=== PATIENT | female | born 1990 | race African-American/Black ===

== ENCOUNTER 2016-11-07 17:17 | Emergency (ER) | payer MEDICAID ==
[~2016-11-07] VITALS: Ht 165.1 cm; Wt 80.0 kg
[2016-11-07 17:18] VITALS: BP 141/72; PULSE 78; RESP 16; TEMP 98.9; O2SAT 99
--- NOTE | 2016-11-07 17:49 | PD ---
HPI Chief Complaint: Complaint Time Seen by Provider: 17:46 Travel History International Travel<30 days: No Contact w/Intl Traveler<30days: No Traveled to known affect area: No History of Present Illness HPI 26-year-old female since emergency department for evaluation of constant nonradiating right low back pain and dysuria 2 days. She denies fever, chills , nausea, vomiting. She reports similar symptoms in the past with a kidney infection. Symptoms severity mild. No aggravating or alleviating factors. PFSH Past Medical History Medical History: Denies Significant Hx ?: Not LMP: 10/16/16 Social History Alcohol Use: Yes Tobacco Use: No Substance Use: No Allergies-Medications (Allergen,Severity, Reaction): Coded Allergies: No Known Allergies (Unverified , 11/07/16) Reported Meds & Prescriptions Reported Meds & Active Scripts Active No Active Prescriptions or Reported Medications Review of Systems Except as stated in HPI: all other systems reviewed are Neg General / Constitutional: No: Fever Eyes: No: Visual changes HENT: No: Headaches Cardiovascular: No: Chest Pain or Discomfort Gastrointestinal: No: Abdominal Pain Physical Exam Narrative GENERAL: Alert, well-appearing female no acute distress. Resting comfortable the on stretcher. SKIN: Focused skin assessment warm/dry. HEAD: Atraumatic. Normocephalic. EYES: Pupils equal and round. No scleral icterus. No injection or drainage. ENT: No nasal bleeding or discharge. Mucous membranes pink and moist. NECK: Trachea midline. No JVD. CARDIOVASCULAR: Regular rate and rhythm. No murmur appreciated. RESPIRATORY: No accessory muscle use. Clear to auscultation. Breath sounds equal bilaterally. GASTROINTESTINAL: Abdomen soft, non-tender, nondistended. Hepatic and splenic margins not palpable. No CVA tenderness MUSCULOSKELETAL: No obvious deformities. No clubbing. No cyanosis. No edema. NEUROLOGICAL: Awake and alert. No obvious cranial nerve deficits. Motor grossly within normal limits. Normal speech. PSYCHIATRIC: Appropriate mood and affect; insight and judgment normal. Data Data Last Documented VS Vital Signs Date Time Temp Pulse Resp B/P Pulse Ox O2 Delivery O2 Flow Rate FiO2 11/07/16 17:18 98.9 78 16 141/72 99 Orders Urinalysis - C+S If Indicated (11/07/16 18:13) Urine Culture (7/29/17 18:25) Labs Laboratory Tests Test 11/07/16 18:25 Urine Color YELLOW Urine Turbidity HAZY Urine pH 5.5 Urine Specific [place] 1.026 Urine Protein TRACE mg/dL Urine Glucose (UA) NEG mg/dL Urine Ketones NEG mg/dL Urine Occult Blood TRACE Urine Nitrite NEG Urine Bilirubin NEG Urine Urobilinogen LESS THAN 2.0 MG/DL Urine Leukocyte Esterase LARGE Urine RBC 94 /hpf Urine WBC 126 /hpf Urine Squamous Epithelial 8 /hpf Cells Urine Bacteria OCC /hpf Urine Mucus FEW /lpf Microscopic Urinalysis Comment CULTURE INDICATED MDM Medical Decision Making Medical Screen Exam Complete: Yes Emergency Medical Condition: Yes Differential Diagnosis UTI, pyelonephritis, nephrolithiasis Narrative Course 26-year-old female with 2 day history of right low back pain and dysuria. Patient denies fever or chills. She reports similar symptoms with previous kidney infection. LMP 10/16/16. Denies possibly . Patient's physical exam is reassuring. She has no CVA tenderness. No abdominal pain. UA is positive for large amount of leukocytes, WBCs 126. Patient will be treated for pyelonephritis. Return precautions discussed. Patient verbalizes understanding and agrees to plan. Diagnosis Primary Impression: Pyelonephritis Referrals: Primary Care Physician Additional Instructions: Take the antibiotics as prescribed. Stay well hydrated by drinking plenty of fluids. Return to the emergency department if he developed new or worsening symptoms. Scripts Sulfamethoxazole-Trimethoprim (Bactrim DS)800-160 Mg Tab1 Tab PO BID #14 TAB Prov:Anitha Cooney 11/07/16 Disposition: 01 DISCHARGE HOME Condition: Stable Anitha Cooney Nov 07, 2016 17:49
[2016-11-07 19:35] LABS: BACTERIA, URINE OCC /hpf; BLOOD, URINE TRACE (NEG); COMMENT (UR) CULTURE INDICATED; CULTURE IF INDICATED CULTURE INDICATED; GLUCOSE,URINE NEG (NEG); KETONE, URINE NEG (NEG); MUCUS URINE FEW /lpf (OCC); NITRITE,URINE NEG (NEG); PH, URINE 5.5 (5.0-8.5); SQUAMOUS EPITHELIAL CELL URINE 8 /hpf (0-5); URINE COLOR YELLOW (YELLW/STRAW)
[2016-11-07] MEDS ORDERED: BACT800T5 PO (19:42)
== END 2016-11-07 19:54 | disposition home or self-care (01) ==
LOC: NEPD 17:17
DX: N12 Tubulo-interstitial nephritis, not specified as acute or chronic (principal)
CPT/HCPCS: 81001; 87086; 99283

== ENCOUNTER 2017-02-25 18:18 | Emergency (ER) | payer MEDICAID ==
[~2017-02-25] VITALS: Ht 162.6 cm; Wt 85.0 kg
[~2017-02-25 18:18] MED LIST: BACT800T5 PO
[2017-02-25 18:39] VITALS: BP 135/81; PULSE 81; RESP 16; TEMP 98.9; O2SAT 83
[2017-02-25] MEDS ORDERED: PREN29TA PO (18:48)
[2017-02-25] MEDS ORDERED: ACETAMINOPHEN 500 MG CPLT PO ONE (19:15)
--- NOTE | 2017-02-25 19:24 | PD ---
HPI Chief Complaint: Headache Time Seen by Provider: 19:11 Travel History International Travel<30 days: No Contact w/Intl Traveler<30days: No Traveled to known affect area: No History of Present Illness HPI 26 year-old female presents to the emergency department for complaint of headache. Patient rates her headache pain 7/10 in intensity right sided radiates to the right neck. Patient states she's had this headache for 3 days. Patient reports that her headache worsens or work improved some at home. Patient has not contacted her primary care provider/RETAIL ACCOUNT SPECIALIST regarding this headache. Headache is not sudden onset thunderclap or worst ever. Patient has taken no medications for her headache not even acetaminophen. Patient states she is 15 weeks . Patient is taking vitamins. Patient is 3 para 1 AB 1. Patient states she is 15 weeks and has had no issues with her . Patient states that she did have one episode of vomiting 3 days ago. Patient states that she has not had any change in mentation visual disturbance change in her speech or lower extremity numbness tingling or weakness or ataxia of gait. Patient states that she's had no fever or respiratory illness symptoms. Patient has had no injury or fall. 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 Patient states headache seems to improve and then returns as soon as she returns to work in that she has been doing a lot of studying she is also in school. She states when she does repetitive neck flexion that seems to worsen her headache. Patient has not used any ice pack were moist heat to the posterior neck either. Patient states he one month ago she had the same type of headache and take acetaminophen are provided no relief so she decided not to take any acetaminophen this time. Patient denies any chronic medical conditions in all of her immunizations are current. Patient does not voice any complaints of any chest pain or shortness of breath, no abdominal pain, no flank pain, no dysuria , no urgency, no hematuria, no vaginal discharge or vaginal bleeding, or change in bowel habits. PFSH Past Medical History Narrative Medical Ab1; no tobacco use: Nursing notes reviewed Medical History: Denies Significant Hx Immunizations Current: Yes Tetanus Vaccination: Unknown Influenza Vaccination: No ?: LMP: 15 WEEKS : 3 Para: 1 Miscarriage: 1 Past Surgical History Surgical History: No Previous Surgery Social History Alcohol Use: No Tobacco Use: No Substance Use: No Allergies-Medications (Allergen,Severity, Reaction): Coded Allergies: No Known Allergies (Unverified Adverse Reaction, Unknown, 02/25/17) Reported Meds & Prescriptions Reported Meds & Active Scripts Active Reported Plus Iron 29-1 mg ( Vit-Iron Carbonyl) 29 Mg Iron-1 Mg Tab 1 Tab PO DAILY Review of Systems Except as stated in HPI: all other systems reviewed are Neg General / Constitutional: No: Fever, Chills HENT: Positive: Headaches, No: Congestion, Neck Stiffness Cardiovascular: No: Chest Pain or Discomfort Respiratory: No: Cough, Shortness of Breath Gastrointestinal: Positive: Vomiting (x1), No: Nausea, Diarrhea, Abdominal Pain Genitourinary: Positive: Frequency, No: Urgency, Dysuria, Pelvic Pain, Flank Pain, Discharge, Vaginal Bleeding Musculoskeletal: No: Myalgias, Arthralgias Skin: No Rash Neurologic: Positive: Headache, No: Weakness, Syncope, Focal Abnormalities, Coordination Problem, Change in Mentation, Slurred Speech, Paresthesia, Incontinence Psychiatric: No: Anxiety Hematologic/Lymphatic: No: Lymph Node Enlargement Physical Exam Narrative GENERAL: Well-developed well-nourished female in no acute distress no respiratory distress sitting fairly on exam stretcher room air O2 saturation 98 % respirations nonlabored GCS SKIN: Warm and dry. HEAD: Atraumatic. Normocephalic. EYES: Pupils equal and round. No scleral icterus. No injection or drainage. Extraocular muscles intact. Funduscopic exam no papilledema. ENT: No nasal bleeding or discharge. Mucous membranes pink and moist. Airway is patent. Tympanic membranes no redness no dullness or loss of landmarks. NECK: Trachea midline. No JVD. Supple no meningismus no neck rigidity no midline tenderness to direct palpation along the cervical spine mild right paracervical trapezius muscle tenderness to palpation. Patient CARDIOVASCULAR: Regular rate and rhythm. RESPIRATORY: No accessory muscle use. Clear to auscultation. Breath sounds equal bilaterally. GASTROINTESTINAL: Abdomen soft, non-tender, nondistended. Hepatic and splenic margins not palpable. FHT: 164 MUSCULOSKELETAL: Extremities without clubbing, cyanosis, or edema. No obvious deformities. NEUROLOGICAL: Awake and alert. No obvious cranial nerve deficits. Motor grossly within normal limits. Five out of 5 muscle strength in the arms and legs. Normal speech. PSYCHIATRIC: Appropriate mood and affect; insight and judgment normal. Data Data Last Documented VS Vital Signs Date Time Temp Pulse Resp B/P (MAP) Pulse Ox O2 Delivery O2 Flow Rate FiO2 02/25/17 20:24 98.7 87 14 124/80 (95) 99 02/25/17 18:48 Room Air Orders Orders Urinalysis - C+S If Indicated (02/25/17 19:11) Acetaminophen (Tylenol) (02/25/17 19:15) Heart Tones (02/25/17 19:11) Ed Discharge Order (02/25/17 20:22) Labs Laboratory Tests Test 02/25/17 19:20 Urine Color YELLOW Urine Turbidity CLEAR Urine pH 7.5 Urine Specific [place] 1.006 Urine Protein NEG mg/dL Urine Glucose (UA) NEG mg/dL Urine Ketones NEG mg/dL Urine Occult Blood NEG Urine Nitrite NEG Urine Bilirubin NEG Urine Leukocyte Esterase NEG Urine WBC 0-2 /hpf Urine Squamous Epithelial Cells 0-5 /hpf Microscopic Urinalysis Comment CULT NOT INDICATED MDM Medical Decision Making Medical Screen Exam Complete: Yes Emergency Medical Condition: Yes Medical Record Reviewed: Yes Interpretation(s) UA: wnl Differential Diagnosis Musculoskeletal pain, tension headache, migraine, ICH, viral syndrome, UTI Narrative Course Patient with reproducible right neck muscle spasm. Patient given a dose of acetaminophen and urine specimen sent for urinalysis Patient's heart tones 164 patient is normotensive and O2 saturations are actually 98% patient without any respiratory complaints no chest pain no pleuritic pain no orthopnea or PND no shortness of breath. Patient is stable for outpatient management patient is encouraged to follow-up with her RETAIL ACCOUNT SPECIALIST patient is encouraged to use ergonomic chair at place of work. @ 20:18 UA wnl; patient informed of UA results and stable for outpatient management; patient reports headache improved after tylenol. Diagnosis Primary Impression: Headache Qualified Codes: G44.209 - Tension-type headache, unspecified, not intractable Additional Impressions: (induced) termination of with other complications Qualified Codes: Z3A.15 - 15 weeks gestation of Referrals: Auxiliary Power Equipment Operator call for appointment Patient Instructions: General Instructions Departure Forms: Tests/Procedures, Work Release Special Instructions: Ergonomic chair at work just is recommended Additional Instructions: Increase fluid hydration Use ergonomic chair and stress stool@place of work follow-up with your RETAIL ACCOUNT SPECIALIST call office in the a.m. to schedule follow-up appointment Recommend use of acetaminophen/Tylenol every 4-6 hours as needed for minor pain associated with headache or for fever 100.4F or greater May use ice intermittently for first 12-24 hrs. onset of muscle spasm or minor pain and then moist heat as needed to area for soft tissue symptoms Return to the emergency for free concerns or change in condition Med/Other Pt SpecificInfo: No Change to Meds Disposition: 01 DISCHARGE HOME Condition: Stable Stacy Estrada MD Feb 25, 2017 19:24
[2017-02-25 19:35] LABS: BLOOD, URINE NEG (NEG); GLUCOSE,URINE NEG (NEG); KETONE, URINE NEG (NEG); NITRITE,URINE NEG (NEG); PH, URINE 7.5 (5.0-8.5)
[2017-02-25 19:42] LABS: URINE COLOR YELLOW (YELLW/STRAW); WBC, URINE 0-2 /hpf (0-5)
[2017-02-25 19:43] LABS: COMMENT (UR) CULT NOT INDICATED; CULTURE IF INDICATED CULT NOT INDICATED; SQUAMOUS EPITHELIAL CELL URINE 0-5 /hpf (0-5)
[2017-02-25 20:24] VITALS: BP 124/80; TEMP 98.7
== END 2017-02-25 20:32 | disposition home or self-care (01) ==
LOC: PHED 18:18
DX: O26.892 Other specified pregnancy related conditions, second trimester (principal); G44.209 Tension-type headache, unspecified, not intractable; Z3A.15 15 weeks gestation of pregnancy
CPT/HCPCS: 81001; 99283